=== PATIENT | male | born 1965 | race Caucasian/White ===

== ENCOUNTER 2017-05-08 16:16 | Emergency (ER) | payer OTHER ==
[~2017-05-08] VITALS: Ht 180.3 cm; Wt 91.6 kg
[2017-05-08 16:16] VITALS: BP 131/93; PULSE 65; RESP 18; TEMP 97.5; O2SAT 100
[~2017-05-08 16:16] MED LIST: ATEN-167 PO; [UNRECOGNIZED DRUG - OTHER] PO
--- NOTE | 2017-05-08 16:16 | NUR ---
Patient triaged and placed in waiting room. VSS and patient appears in no acute distress at this time. Accompanied by SELF, awaiting available bed, and MD notified of need for MSE.
--- NOTE | 2017-05-08 16:45 | NUR ---
Pt presents to ED with headache starting at occipital lobe radiates to parietal area and neck to shoulder. Reports some blurred vision. Pt has had headache for "a few weeks", saw PCP who referred him to a neurologist, but referral is still pending. Pt is A&Ox4, NAD
[2017-05-08] MEDS ORDERED: KETOROLAC TROMETHAMINE 60 MG/2 ML VIAL IM ONE (17:45)
[2017-05-08] MEDS ORDERED: PROCHLORPERAZINE EDISYLATE 10 MG/2 ML VIAL IM ONE (17:45)
--- NOTE | 2017-05-08 17:51 | NUR ---
ADMIN MEDS ORDERED. PT TANNER WELL
--- NOTE | 2017-05-08 17:55 | NUR ---
PT OFF OF UNIT TO CT FOR CT OF HEAD. MEDICALLY STABLE AT THIS TIME
--- NOTE | 2017-05-08 18:09 | NUR ---
PT BACK IN ROOM. NAD
--- NOTE | 2017-05-08 18:25 | NUR ---
Patient given written and verbal discharge instructions and verbalizes understanding. ER MD discussed with patient the results and treatment provided. Patient in stable condition. ID arm band removed. Rx of FLEXERIL AND TRAMADOL given. Patient educated on pain management and to follow up with PMD. Pain Scale 0/10. Opportunity for questions provided and answered.
== END 2017-05-08 18:25 | disposition home or self-care (01) ==
LOC: SED 16:16
DX: G44.209 Tension-type headache, unspecified, not intractable (principal); K21.9 Gastro-esophageal reflux disease without esophagitis; I10 Essential (primary) hypertension
CPT/HCPCS: 70450; 96372; 99284; J0780; J1885

== ENCOUNTER 2017-09-02 11:44 | Outpatient (CLI) | payer OTHER | END 2017-09-02 19:20 | disposition home or self-care (01) | LOC: SRD 11:44 | PROVIDERS: ATTEND Family Medicine | DX: M19.072 Primary osteoarthritis, left ankle and foot (principal); M47.892 Other spondylosis, cervical region; I65.23 Occlusion and stenosis of bilateral carotid arteries | CPT/HCPCS: 72050-TC ==